=== PATIENT | female | born 1955 ===

== ENCOUNTER 2020-11-05 08:11 | Emergency (ER) | payer MEDICARE, SELFPAY ==
--- NOTE | ~2020-11-05 | XR_ITS ---
XR wrist LT min 3V DATE: 11/05/2020 08:51 INDICATION: Fall. Left wrist injury, pain TECHNIQUE: 4 views COMPARISON: None FINDINGS: There is a transverse extra-articular distal radial fracture with approximately one cortica l width dorsal displacement and mild dorsal inclination of the distal radial articular surface. There is a laterally displaced fracture of the ulnar styloid process. Radiocarpal alignment is preserved. IMPRESSION: Transverse distal radial fracture Ulnar styloid process fracture Reviewed, dictated and finalized at location A. SHAVER
[2020-11-05 08:15] VITALS: BP 167/89; PULSE 78; RESP 20; TEMP 35.6; O2SAT 100
--- NOTE | 2020-11-05 08:41 | ED.UPPEXIN ---
HPI - Extremity Injury (Upper) General Chief Complaint: Extremity Injury, Upper Stated Complaint: left wrist pain Time Seen by Provider: 11/05/20 08:27 History of Present Illness HPI narrative: Fall onto outstretched left hand last night. Pain and swelling in the left wrist. Worse this morning. No prior injury. No weakness, numbness, wound. Related Data Allergies Allergy/AdvReac Type Severity Reaction Status Date / Time No Known Allergies Allergy Verified 11/05/20 08:16 Review of Systems Review of Systems: All systems reviewed & are unremarkable except as noted in HPI and below PMFSH Past Medical History Medical History Breast cancer Migraine Mitral valve prolapse Surgical History Surgical History H/O right mastectomy History of bladder surgery Family History Family History Sibling Acute myocardial infarction Social History Social History Smoking status: Never smoker Alcohol intake: current Drinks per week: 4 Substance use: never Exam Const: General: healthy appearing, no acute distress and alert Orientation/consciousness: patient oriented x3 HENMT: Head: normal to inspection Neck: Neck: normal visual inspection Resp: Effort & Inspection: normal respiratory effort Cardio: Other: 2+ left radial pulse Skin: General skin exam: normal color Wounds: no wounds Neuro: General: patient oriented x3, moves all extremities and no focal motor deficits Speech: normal speech Other: distla motor and sensory intact in injurred arm Extrem: Other: Tenderness and swelling to the left wrist Course Vital Signs Vital signs: Vital Signs Temperature 35.6 C L 11/05/20 08:15 Pulse Rate 78 11/05/20 08:15 Respiratory Rate 20 11/05/20 08:15 Blood Pressure 167/89 H 11/05/20 08:15 Pulse Oximetry 100 11/05/20 08:15 Temperature 35.6 C L 11/05/20 08:15 Pulse Rate 80 11/05/20 10:37 Respiratory Rate 18 11/05/20 10:37 Blood Pressure 150/75 H 11/05/20 10:37 Pulse Oximetry 98 11/05/20 10:37 Procedures Orthopedic Splinting/Casting Injury #1: Side: left Upper Extremity Injury Location: wrist Splint: customized in ED OCL: volar Pre-Procedure Neuro Vascular Exam: normal Post-Procedure Neuro Vascular Exam: normal MDM - Extremity Injury (Upper) Differential Diagnosis Differential diagnosis: Likely sprain and strain of wrist and fracture of wrist Imaging Data Radiologist's impression: ITS Impressions Wrist X-Ray 11/05/20 09:04 IMPRESSION: Transverse distal radial fracture Ulnar styloid process fracture Discharge Plan Discharge Clinical Impression: Fracture of distal end of radius Patient Disposition: Home, Self-Care Condition: Stable Instructions: Wrist Fracture in Adults (ED) Prescriptions: New hydrocodone-acetaminophen 5-325 mg tablet 1 tablet PO Q6H PRN (Reason: pain) Qty: 10 RF: 0 Follow-up/Referrals: Jah Jones MD [Physician] - JOSE,BLAISE Zuleta M.D. [Primary Care Provider] -
[2020-11-05 10:37] VITALS: BP 150/75; PULSE 80; RESP 18; O2SAT 98
== END 2020-11-05 10:38 | disposition home or self-care (01) ==
PROVIDERS: Emergency Provider Emergency Medicine; PCP Internal Medicine
DX: S52.552A Other extraarticular fracture of lower end of left radius, initial encounter for closed fracture (principal); S52.612A Displaced fracture of left ulna styloid process, initial encounter for closed fracture; I34.1 Nonrheumatic mitral (valve) prolapse; Z85.3 Personal history of malignant neoplasm of breast; Z90.11 Acquired absence of right breast and nipple
CPT/HCPCS: 29125; 73110; 99284; A4565

== ENCOUNTER 2025-02-15 13:42 | Outpatient (CLI) | payer MEDICARE, SELFPAY ==
--- NOTE | ~2025-02-15 | DEXA_ITS ---
Bone Density Report Name: XIOMY VARGAS Age: 70 Sex: Female Ethnicity: White Date of : 1955 Indication: postmenopausal; screening for osteoporosis; height loss; Referring Provider: BELEN, LISA Study: Bone densitometry was performed. Exam Date: February 15, 2025 Accession number: [id number] Bone Density: Region BMD T-score Z-score Classification AP Spine(L1-L4) 1.031 -0.1 2.0 Normal Femoral Neck (Left) 0.625 -2.0 -0.2 Osteopenia Total Hip (Left) 0.823 -1.0 0.5 Normal Femoral Neck (Right) 0.624 -2.0 -0.2 Osteopenia Total Hip (Right) 0.824 -1.0 0.5 Normal Femoral Neck Mean 0.624 -2.0 -0.2 Osteopenia Total Hip Mean 0.823 -1.0 0.5 Normal World Health Organization criteria for BMD impression classify patients as: Normal (T-score at or above -1.0), Osteopenia (T-score between -1.0 and -2.5), or Osteoporosis (T-score at or below -2.5). 10-year Fracture Risk: FRAX not reported because: Treated for osteoporosis Clinical Information Provided by Patient: Is being treated for osteoporosis Has used the following medications: Fosamax (i.e. alendronate), Vitamin D Patient maximum height was 64 Menopause Age: 50 Drinks caffeinated beverages Onset of menses at age 16 Number of children 2 Impression: The patient has low bone mass, based on the Left Femoral Neck T-score. Discussion: It is important to ask patients whether they are taking their medications and to encourage continued and appropriate compliance with their osteoporosis therapies to reduce fracture risk. It is also important to review their risk factors and encourage appropriate calcium and vitamin D intakes, exercise, fall prevention and other lifestyle measures. Follow-Up: Consider a repeat BMD and Vertebral Fracture Assessment (VFA) exam in 2 years or sooner if medically necessary, to reassess this patient's status. Reported by: MARLENY on 02/15/2025 2:08:00 PM. Reviewed, dictated and finalized at location A.
--- OUTSIDE RECORDS SUMMARY | 2025-02-15 14:57 | XMS_ITS | Clinical Summary ---
Author Organization [facility] Address [address] [place] [address] Phone Care Team Providers Care Roof Bolting Coal Miner Name Role Phone Provider, Abstract Primary Care Provider Unavail able Allergies Active Allergy Reactions Criticality Noted Date Comments Sulfa (Sulfonamide Antibiotics) Itching,Abdominal Pain Low 02/21/2010 Medications No known medications Active Problems Problem Noted Date Diagnosed Date Malignant neoplasm of female breast 02/21/2010 Overview (02/21/2010): 3-2007,R breast,IDC,mastectomy,SN,[id number],ER+,[place]-,Her 2 neg,Ki67>20% Cytoxan/taxotere X 4 Trial of both Arimidex and aroma sin with intolerance. Off x 1 year Immunizations Immunization Administration Dates Next Due (ADACEL/BOOSTRIX)(10 YR UP) TDAP VACCINE, 0.5ML, IM 06/03/2019 (PFIZER)(12 YR UP) COVID-19 VACCINE - EMERGENCY USE AUTHORIZATION, MRNA, [id number](PF) 30 MCG/0.3 ML IM SUSP 11/11/2020 (PNEUMOVAX 23)(50 YRS UP) PN EUMOCOCCAL POLYSACCHARIDE (PPV23) 0.5 ML, IM 05/10/2020 INFLUENZA VACCINE HIGH DOSE QUADRIVALENT 65 YR U P PF IM 05/10/2020 INFLUENZA VACCINE QUADRIVALENT 6 MOS UP PF IM Family History Medical History Relation Name Comments Asthma Brother Hypertension Father Lung Cancer Father Respiratory Disease Father Breast Cancer Paternal Aunt Cancer Paternal Grandmother Asthma Sister 1 Kayleen Respiratory Disease Sister 1 Kayleen Asthma Sister 2 Beta Heart Disease Sister 2 Beta Relation Name Status Comments Brother Father Mother (Age 93) Paternal Aunt Alive Paternal Grandmother Sister 1 Kayleen Sister 2 Beta Alive Social History Tobacco Use Types Packs/Day Years Used Date Smoking Tobacco: Never Smokeless Tobacco: Never Alcohol Use Standard Drinks/Week Comments Yes 0 (1 standard drink = 0.6 oz pure alcohol) 2 to 4 Glasses of a wine a week Comments Unknown Sex and Gender Information Value Date Recorded Sex Assigned at Not on file 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 Gender Identity Not on file Sexual Orientation Not on file Occupation Industry Job Start Date Job End Date Not on file Not on file Not on file Not on file Last Filed Vital Signs Vital Sign Reading Time Taken Comments Blood Pressure 136/76 06/19/2020 9:51 AM CDT Pulse 74 06/19/2020 9:51 AM CDT Temperature 36.4 C (97.5 F) 06/19/2020 9:51 AM CDT Respiratory Rate 20 03/02/2019 1:30 PM CDT Oxygen Saturation 98% 06/19/2020 9:51 AM CDT Inhaled Oxygen Concentration - - Weight 66.7 kg (147 lb) 06/19/2020 9:51 AM CDT Height 162.6 cm (5' 4) 06/19/2020 9:51 AM CDT Body Mass Index 25.23 06/19/2020 9:51 AM CDT Plan of Treatment Health Maintenance Due Date Last Done Comments COLORECTAL SCREENING 01/09/2000 FIT-DNA Q 3 years 01/09/2000 Flex Sig/CT Colonography Q 5 years 01/09/2000 ZOSTER VACCINE (1 of 2) 2005 OSTEOPOROSIS SCREENING 01/09/2020 02/21/2010 PNEUMOCOCCAL VACCINE 50+ YEA RS (2 of 2 - PCV) 05/10/2021 05/10/2020 Colorectal Cancer Screening 06/24/2021 FIT/FOBT Q 1 year 06/24/2021 06/24/2020 BREAST CANCER SCREENING 03/08/2022 03/08/20 21, 03/08/2021, 03/06/2019, Additional history exists INFLUENZA VACCINE (#1) 2024 05/10/2020, 2018 COVID-19 Vaccine (2 - 2023-2 5 season) 2024 11/11/2020 DTAP/TDAP/TD VACCINES (2 - T d or Tdap) 06/03/2029 06/03/2019 RSV VACCINE (60+ or ) (1 - 1-dose 75+ series) 2030 Procedures Procedure Name Priority Date/Time Associated Diagnosis Comments OCCULT BLOOD IMMUNOASSAY, COLORECTAL SCREEN Routine 06/24/2020 4:27 PM CDT Screening for colorectal cancer MAMMO UNILATERAL DIAG LEFT Stat 08/09/2016 Malignant neoplasm of right female breast, unspecified site of breast (CMS/HCC) Pain of left breast Lump of breast, left XR DEXA BONE DENSITY AXIAL 1 OR MORE SITES Routine 02/21/2010 Postmenopausal from Last 3 Months or Most Recently Relevant to Health Maintenance Results * OCCULT BLOOD IMMUNOASSAY, COLORECTAL SCREEN (06/24/2020 4:27 PM CDT) OCCULT BLOOD, STOOL Negative Negative 06/28/2020 5:14 PM CDT [facility] [employer] [facility] Stool STOOL SPECIMEN / Unknown Collection / Unknown 06/24/2020 4:27 PM CDT 06/28/2020 4:27 PM CDT Alyse Shah MD BODY FLUIDS AND STOOLS Final Res ult [facility] [employer] [facility]# [id number] [facility] [place] [address] * MAMMO UNILATERAL DIAG LEFT (08/09/2016) Anatomical Region Laterality Modality Breast Left Other Maddie Alarcon MD MAMMO ORDERABLES Final Result * XR DEXA BONE DENSITY AXIAL 1 OR MORE SITES (02/21/2010) T-SCORE FEMUR (LEFT) EXTERNAL RADIOLOGY T-SCORE FEMUR (RIGHT) EXTERNAL RADIOLOGY T-SCORE FEMUR >=-0.99 PEER SUPPORT SPECIALIST AL RADIOLOGY T-SCORE SPINE >=-0.99 PEER SUPPORT SPECIALIST AL RADIOLOGY T-SCORE HIP (LEFT) EXTERNAL RADIOLOGY T-SCORE HIP (RIGHT) EXTERNAL RADIOLOGY T-SCORE HIP >=-0.99 EXTERNAL RADIOLOGY Anatomical Region Laterality Modality Other Maddie Alarcon MD DIAGNOSTIC IMAGING ORDERABLES Final Result from Last 3 Months or Most Recently Relevant to Health Maintenance Insurance [facility] [id number] Care Teams Roof Bolting Coal Miner Relationship Specialty Start Date End Date Provider, Abstract NO ADDRESS ON FILE PCP - General 02/26/21
--- OUTSIDE RECORDS SUMMARY | 2025-02-15 14:57 | XMS_ITS | Encounter Summary ---
Author Organization [facility] Address [address] [place] [address] Care Team Providers Care Supervisor Adult Education Name Role Phone Provider, Abstract Primary Care Provider Unavail able Encounter Details Date Type Department Care Team (Late st Contact Info) Description 10/11/2008 Outpatient Historical [facility] Alesia Blackburn MD [address] [place] [address] [place] [phone] Malignant Neoplasm of Breast (Female), Unspecified Site (CMS/HCC); Lumbosacral Spondylosis without Myelopathy; Unspecified Congenital Cystic Kidney Disease; Other and Unspecified Ovarian Cyst Social History Tobacco Use Types Packs/Day Years Used Date Smoking Tobacco: Never Assessed Comments Unknown Sex and Gender Information Value Date Recorded Sex Assigned at Not on file 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 Gender Identity Not on file Sexual Orientation Not on file documented as of this encounter Plan of Treatment Not on file documented as of this encounter Procedures Procedure Name Priority Date/Time Associated Diagnosis Comments CT CHEST ABDOMEN PELVIS W CONT Routine 10/11/2008 2:57 PM LINING STUFFER POC CREATININE Routine 10/11/2008 2:20 PM LINING STUFFER documented in this encounter Results * CT CHEST ABDOMEN PELVIS W CONT (10/11/2008 2:57 PM LINING STUFFER) Anatomical Region Laterality Modality Chest Other 10/11/2008 2:57 PM LINING STUFFER Narrative 10/12/2008 11:07 AM LINING STUFFER [facility] [address], [place] [address] Admit Date: 10/11/2008 MERLENE PATRICK Sex: F Admit Prov: ALESIA BLACKBURN Date: 1955 Primary Care Prov: CMRN: [id number] Room: [facility] SSN: IMAGING SERVICES Ordering Prov: N/A Accession Number: [id number] Interpretation CT CHEST, ABDOMEN, AND PELVIS WITH IV CONTRAST 10/11/2008 Indication: Breast cancer, left upper quadrant pain. Technique: Multiple [address] images were acquired after intravenous contrast administration. Findings: Bilateral breast implants are noted with changes of right mastectomy. Mediastinal vascular structures enhance normally. Heart size is normal. No significant mediastinal or hilar adenopathy is seen. No significant axillary adenopathy is identified. The airway is patent. No significant pulmonary infiltrate is seen. No pleural effusion is present. No acute osseous abnormalities are identified. The spleen, liver, pancreas, and gallbladder are normal in appearance. Adrenals are not enlarged. Kidneys enhance without hydronephrosis. A suspected renal cyst on the right measuring 1.1 cm is seen. Similar suspected cyst on the left measures 1 cm. The bowel is not thickened or dilated. No free air or free fluid is identified. No significant adenopathy is identified. Vascular structures enhance normally. Urinary bladder contains a mild amount of fluid. The uterus is normal in size. A hypodense cystic type lesion in the left side of the pelvis measuring 5.7 cm is identified. It measures 25 Hounsfield units. There is no soft tissue mass or septation identified. This is probably ovarian in origin. Osseous structures are intact. Degenerative changes are present. Pars defects are present at L5. Impression: 1. Bilateral renal cysts. 2. Left ovarian cyst. Followup sonogram is recommended. 3. No evidence of metastatic disease. 4. Spondylolysis at L5. . Dictated by: TREE GARZA 10/11/2008 15:37 Electronically signed by: TREE GARZA 10/12/2008 11:06 Transcribed: 10/11/2008 16:09 AMK Procedure Note Tree Garza - 10/12/[address] [address] Admit Date: 10/11/2008 MERLENE PATRICK Sex: F Admit Prov: ROSEALESIA MIRELES Sury Date: 1955 Primary Care Prov: CMRN: [id number] Room: [facility] SSN: IMAGING SERVICES Ordering Prov: N/A Interpretation CT CHEST, ABDOMEN, AND PELVIS WITH IV CONTRAST 10/11/2008 Indication: Breast cancer, left upper quadrant pain. Technique: Multiple [address] images were acquired afterintravenous contrast administration. Findings: Bilateral breast implants are noted with changes of rightmastectomy. Mediastinal vascular structures enhance normally. Heart size isnormal. No significant mediastinal or hilar adenopathy is seen. No significant axillary adenopathy is identified. The airway is patent. Nosignificant pulmonary infiltrate is seen. No pleural effusion is present. Noacute osseous abnormalities are identified. The spleen, liver, pancreas, and gallbladder are normal inappearance. Adrenals are not enlarged. Kidneys enhance without hydronephrosis.A suspected renal cyst on the right measuring 1.1 cm is seen. Similar suspected cyst on the left measures 1 cm. The bowel is not thickenedor dilated. No free air or free fluid is identified. No significant adenopathy is identified. Vascular structuresenhance normally. Urinary bladder contains a mild amount of fluid. The uterusis normal in size. A hypodense cystic type lesion in the left side ofthe pelvis measuring 5.7 cm is identified. It measures 25 Hounsfieldunits. There is no soft tissue mass or septation identified. This isprobably ovarian in origin. Osseous structures are intact. Degenerativechanges are present. Pars defects are present at L5. Impression: 1. Bilateral renal cysts. 2. Left ovarian cyst. Followup sonogram is recommended. 3. No evidence of metastatic disease. 4. Spondylolysis at L5. . Dictated by: TREE GARZA 10/11/2008 15:37 Electronically signed by: TREE GARZA 10/12/2008 11:06 Transcribed: 10/11/2008 16:[address] ORDERABLES Final Resul t * POC CREATININE (10/11/2008 2:20 PM LINING STUFFER) CREATININE POC 0.9 0.6 - 1.3 mg/dL [facility] Comment: The calculation for the estimated GFR on the i-STAT POC instrument has been changed to correspond to the IDMS-traceable MDRD Study, upon the recommendation of the assistant corporation counsel of the i-STAT instrument. The change was effective in our laboratory 08/15/2008. The impact of this change to the estimated GFR is minimal. This calculation is used by the main laboratory methodology also. GFR, >60 >=60 mL/min/1.7 sq meter [facility] GFR >60 >=60 mL/min/1.7 sq meter [facility] Capillary blood specimen (specimen) 10/11/2008 2:20 PM LINING STUFFER 10/11/2008 2:20 PM LINING STUFFER us Alesia Blackburn MD POINT OF CARE TESTING Edite d INTERFACE SYSTEM Refer to clinic/hospital department [facility] CLIA# [id number] [address] [place], [place] [address] documented in this encounter Visit Diagnoses Diagnosis Malignant neoplasm of breast (female), unspecified site Lumbosacral spondylosis without myelopathy Unspecified congenital cystic kidney disease Other and unspecified ovarian cyst documented in this encounter Care Teams Supervisor Adult Education Relationship Specialty Start Date End Date Provider, Abstract NO ADDRESS ON FILE PCP - General 02/26/21 documented as of this encounter
--- OUTSIDE RECORDS SUMMARY | 2025-02-15 14:57 | XMS_ITS | Clinical Summary ---
Author Organization [facility] Address [address] [place] [address] Care Team Providers Care School Photographer Name Role Phone Bassem Brennan MD Unavailable [phone] Jesse Barnhart DO Primary Care Provider + Source Comments [facility],non-owned Affiliates and Associated Physician Practices is amultiple site organization consisting of ambulatory clinics and hospital sitesin [place], [place], [place] and [place]. This disclosure is being madepursuant to the Care Everywhere program and may not contain all information available regarding this patient. Last updated 18.[facility] [employer] Allergies Active Allergy Reactions Criticality Noted Date Comments Sulfa Drugs Other reaction(s): Other (See comments) Reaction: REACTION UNKNOWN, Medications * Be aware that medications may not be up to date on this document. Alwaysverify current medications with the patient. No known medications Active Problems Problem Noted Date Diagnosed Date Malignant neoplasm of female breast 02/21/2010 Overview (04/24/2017): Overview: 3-2006,R breast,IDC,mastectomy,SN,[id number],ER+,[place]-,Her 2 neg,Ki67>20% Cytoxan/taxotere X 4 Trial of both Arimidex and aroma sin with intolerance. Off x 1 year Immunizations Immunization Administration Dates Next Due INFLUENZA VACCINE, QUADR. (F LUZONE; FLULAVAL; FLUARIX; AFLURIA QUADRIVALENT; 6MO+), 0.5 ML (IIV4) 06/03/2019 TDAP (7yrs+) 06/03/2019 Social History Tobacco Use Types Packs/Day Years Used Date Smoking Tobacco: Never Comments No Sex and Gender Information Value Date Recorded Sex Assigned at Not on file Legal Sex Female 3:55 PM CDT Gender Identity Not on file Sexual Orientation Not on file Last Filed Vital Signs Vital Sign Reading Time Taken Comments Blood Pressure 130/70 04/24/2017 3:08 PM CDT Pulse - - Temperature - - Respiratory Rate - - Oxygen Saturation - - Inhaled Oxygen Concentration - - Weight 69.4 kg (153 lb) 04/24/2017 3:08 PM CDT Height 162.6 cm (5' 4) 04/24/2017 3:08 PM CDT Body Mass Index 26.26 04/24/2017 3:08 PM CDT Plan of Treatment Upcoming Encounters Date Type Department Care Team (Late st Contact Info) Description 02/28/2025 1:00 PM CDT Office Visit [facility] [address] [place] [address], [place] [address] Dandre Espino MD [address] [place] [address] [place] [address] Health Maintenance Due Date Last Done Comments COLOGUARD (AGES 45-75) - COLON CA SCREENING 1955 CT COLONOGRAPHY - COLON CA SCREENING 1955 FIT - COLON CA SCREENING 1955 FLEX SIG - COLON CA SCREENING 1955 PNEUMOCOCCAL VACCINE 50+ (1 of 1 - PCV) 2005 ZOSTER VACCINE (1 of 2) 2005 COVID-19 VACCINE ( - season) 2024 03/20/2022, 06/18/2021, 11/11/2020, Additional history exists DEPRESSION SCREENING 09/08/2024 MEDICARE AWV CALENDAR YEAR 2024 MAMMOGRAM 08/17/2026 08/17/2024, 08/08, 09/09/2016 (Done Outside Per Patient) DTAP/TDAP/TD VACCINES (2 - Td or Tdap) 06/03/2029 06/03/2019 LIPID TESTING 08/27/2029 08/27/2024 Respiratory Syncytial Virus (RSV) Vaccine Pt: or over 60 yrs (1 - 1-dose 75+ series) 2030 COLON MONITORING 12/21/2031 12/20/2021 COLONOSCOPY - COLON CA SCREENING 12/21/2031 12/20/2021 Colorectal Cancer Screening 12/21/2031 BONE DENSITY TESTING Completed 03/14/2021 HEPATITIS C SCREENING Completed 08/28/2024, 019 INFLUENZA VACCINE Completed 09/10/2024, , 05/10/2020, Additional history exists HEPATITIS B VACCINE Aged Out No longe r eligible based on patient's age to complete this topic HIB VACCINE Aged Out No longer eligi ble based on patient's age to complete this topic HPV VACCINE Aged Out No longer eligi ble based on patient's age to complete this topic MENINGOCOCCAL (Group B) VACCINE SHARED DECISION-MAKING Aged Out No longer eligible based on patient's age to complete this topic MENINGOCOCCAL GROUPS A/C/Y/W VACCINE Aged Out No longer eligible based on patient's age to complete this topic Insurance [address] [place], [place] [address] MANAGED MEDICARE ADV Care Teams School Photographer Relationship Specialty Start Date End Date Jesse Barnhart DO [address] [place] [address] PCP - General Family Medicine Geriatric Medicine 10/13/24 Bassem Brennan MD [address] [address] Decision Unit Rn Obstetrics and Gynecology 04/24/17
== END 2025-02-15 13:43 | disposition home or self-care (01) ==
PROVIDERS: PCP Student in an Organized Health Care Education/Training Program; Visit Provider Student in an Organized Health Care Education/Training Program
DX: Z78.0 Asymptomatic menopausal state (principal); M85.89 Other specified disorders of bone density and structure, multiple sites
CPT/HCPCS: 77080